=== PATIENT | female | born 1940 | race Caucasian/White ===

== ENCOUNTER → 2017-10-22 | Outpatient (CLI) | payer OTHER ==
[~2017-10-22] MED LIST: ASPIRIN EC81 M1 PO; CARDIO OMEGA B1 EACH PO; CHONDROITIN SU250 MG PO; DIGESTIVE ENZY1 EAC3 PO; FISH OIL 1,2001 EAC3 PO; FLONASE 0.05%50 MCG NASAL; GLUCOSAMINE &1 EACH PO; IMDUR 30 MG TAB30 M1 PO; MULTI-VITAMIN1 EAC5 PO; PREDNISONE 20 M20 MG PO; SIMVASTATIN5 MG PO; TOPROL XL50 MG PO; VITAMIN D-32000 UNIT PO; VOLTAREN GEL 1100 G2 TRANSDERM; ZIOPTAN 0.00151 EACH OPHTHALMIC
== END ==
LOC: RAD 00:38
DX: C50.912 Malignant neoplasm of unspecified site of left female breast (principal)